=== PATIENT | male | born 1960 | race African-American/Black ===

== ENCOUNTER 2020-05-10 05:30 | Emergency (ER) | payer BC ==
[~2020-05-10] VITALS: Ht 188 cm; Wt 93.0 kg
[2020-05-10] MEDS ORDERED: SODIUM CHLORIDE 0.9% 1,000 ML IV ONE (05:45)
[2020-05-10] MEDS ORDERED: PANTOPRAZOLE SODIUM 40 MG/VIAL IV STA (05:55)
[2020-05-10 06:14] LABS: HEMATOCRIT. 43.8 % (42.0-52.0); HEMOGLOBIN. 14.8 g/dL (14.0-18.0); MEAN CORPUSCULAR HEMOGLOBIN 28.6 pg (28.0-32.0); MEAN CORPUSCULAR VOLUME 84.6 fL (80.0-94.0); MEAN PLATELET VOLUME 8.8 fl (7.4-10.4); PLATELET 141 x1000/uL (130-400); RED BLOOD CELL COUNT 5.18 mill/uL (4.7-6.1); RED CELL DISTRIBUTION WIDTH 14.9 % (11.6-14.6)
[2020-05-10 06:19] LABS: CHLORIDE 109 mEq/L (98-107)
[2020-05-10 06:21] LABS: PROTHROMBIN TIME 10.6 sec (9.6-11.0)
[2020-05-10 07:11] LABS: PLATELET ESTIMATE NORMAL
[2020-05-10] MEDS ORDERED: IOHEXOL-300 100 ML BOTTLE ONE (07:20)
[2020-05-10 07:40] VITALS: BP 137/83
[2020-05-10] MEDS ORDERED: IOHEXOL-350 100 ML BOTTLE ONE (12:44)
== END 2020-05-10 10:00 | disposition home or self-care (01) ==
LOC: ER 05:30 → EDBEDREQ 06:00 → ENRESERV 07:28 → CANRESERV 07:28 → ER 10:00 → CANBEDREQ 10:27
DX: K62.5 Hemorrhage of anus and rectum (principal); K29.01 Acute gastritis with bleeding; I10 Essential (primary) hypertension; Z98.890 Other specified postprocedural states
CPT/HCPCS: 36415; 74177; 80053; 83605; 83690; 85025; 85610; 86850; 86900; 86901; 93005; 96361; 96374; 99285; C9113; J7030; Q9967